=== PATIENT | female | born 1950 | race Two or more races ===

== ENCOUNTER 2025-02-22 19:02 | Emergency (ER) | payer MEDICAID ==
[~2025-02-22] VITALS: Ht 157.5 cm; Wt 55.2 kg
[2025-02-22 20:06] LABS: MEAN PLATELET VOLUME 7.3 FL (7.4-10.4); RED CELL DISTRIBUTION WIDTH 13.3 % (11.5-14.5)
--- NOTE | 2025-02-22 20:11 | Physician Documentation ---
History of Present Illness ~ Chief Complaint: Cold, cough & congestion Stated Complaint: COUGH Time Seen by MD: 19:34 Mode of Arrival: POV, Ambulatory HPI Patient is a 74-year-old female that presents to the emergency department for evaluation of cough cold and congestion x1 week. Patient reports that her chest congestion has progressed over the last couple of days. Patient reports fevers. Patient denies chest pain nausea vomiting or diarrhea at this time. Patient's son reports that his mother had pneumonia the last time she was ill. Patient denies any cardiac history pulmonary history or any other significant past medical history at this time. Medication Reconciliation Allergies: Coded Allergies: No Known Allergies (Unverified , 02/22/25) Review of Systems ROS As stated above in the HPI, otherwise all systems are reviewed and negative. Physical Exam Vital Signs: Temperature: 96.3, Source: Temporal, Heart Rate: 88, Respiratory Rate: 16, BP: 147/62, Pulse Oximetry: 99, Weight: 55.250 Physical Exam VITALS: Reviewed and as above. GENERAL: Alert, no apparent distress. HEENT: Normocephalic, atraumatic, PERRL, EOMI, dry mucosa, no erythema, nasal congestion and rhinorrhea. RESPIRATORY: Lungs clear, normal breath sounds, no respiratory distress. CHEST: No accessory muscle use, no retractions, congestion with cough. CV: Regular rate, rhythm, no edema, no murmur, No: JVD GI: Soft, non-tender, bowels sounds present, no rebound, guarding, or rigidity BACK: No CVA tenderness, or swelling MUSCULOSKELETAL No deformities, no edema SKIN: Warm and dry, no rash NEURO: Oriented x4, No motor or sensory deficit PSYCH: Normal mood and affect, no agitation Progress Results/Orders Results/Orders Orders - ALYSSA HANEY Chest,Two Views (02/22/25 20:08) Completed Orders - ALYSSA HANEY Cbc/Diff (02/22/25 19:53) CMP (02/22/25 19:53) Chest,Two Views (02/22/25 20:08) Vital Signs 02/22/25 02/22/25 19:09 19:32 Temp 96.3 Pulse 88 Resp 15 16 B/P (MAP) 147/62 Pulse Ox 99 Laboratory Tests Test 02/22/25 20:01 White Blood Count 11.1 H Red Blood Count 3.60 L Hemoglobin 11.5 L Hematocrit 33.5 L Mean Corpuscular Volume 93.2 Mean Corpuscular Hemoglobin 31.9 H Mean Corpuscular Hemoglobin Concent 34.3 Red Cell Distribution Width 13.3 Platelet Count 364 Mean Platelet Volume 7.3 L Neutrophils (%) (Auto) 60.4 Lymphocytes (%) (Auto) 30.0 Monocytes (%) (Auto) 8.3 Eosinophils (%) (Auto) 1.0 Basophils (%) (Auto) 0.3 Neutrophils # (Auto) 6.7 Lymphocytes # (Auto) 3.3 Monocytes # (Auto) 0.9 Eosinophils # (Auto) 0.1 Basophils # (Auto) 0.0 CBC Comment Sodium Level 138 Potassium Level 4.7 Chloride Level 104 Carbon Dioxide Level 25.4 Anion Gap 9 Blood Urea Nitrogen 17 Creatinine 0.81 Estimated GFR/1.73 m2 69 BUN/Creatinine Ratio 21.0 H Glucose Level 354 H Calcium Level 9.2 Total Bilirubin 0.2 Aspartate Amino Transf (AST/SGOT) 19 Alanine Aminotransferase (ALT/SGPT) 30 Alkaline Phosphatase 150 H Total Protein 7.1 Albumin 3.2 L Globulin 3.9 Albumin/Globulin Ratio 0.8 L Chemistry Comments Medical Decision Making Findings This patient presents with symptoms suspicious for likely viral upper respiratory infection. Based on history and physical doubt sinusitis. Patient declined COVID and flu test. Based on exam and diagnostics do not suspect underlying cardiopulmonary process. I considered, but think unlikely, dangerous causes of this patients symptoms to include ACS, CHF or COPD exacerbations, pneumonia, pneumothorax. Patient is nontoxic appearing and not in need of emergent medical intervention. Patient told to self isolate at home until symptoms subside for 72 hours or fever free for 24 hours or greater without antipyretics. Patient will follow up with her primary care provider regarding her elevated glucoses as she is diabetic at baseline. Patient will return to the emergency department with worsening or recurrent symptoms or any additional concerning symptoms that we discussed here today i.e. shortness of breath increased chest tightness lightheadedness or any other concerning symptoms. Differential Dx:Considerations: Include: Allergic rhinitis, Influenza, Otitis media, Peritonsillar abscess, Pharyngitis-Diphtheria, Pharyngitis-Streptoccal, Pharyngitis-Viral, Pneumonia, Pnuemonitis, Sinusitis, URI, Other Departure Disposition: HOME / SELF CARE / HOMELESS Impression: Primary Impression: Acute respiratory infection Additional Impressions: Cough Congestion of paranasal sinus Fever Discharge Instructions: Upper Respiratory Infection, Adult Additional Instructions: This patient presents with symptoms suspicious for likely viral upper respiratory infection. Based on history and physical doubt sinusitis. Patient declined COVID and flu test. Based on exam and diagnostics do not suspect underlying cardiopulmonary process. I considered, but think unlikely, dangerous causes of this patients symptoms to include ACS, CHF or COPD exacerbations, pneumonia, pneumothorax. Patient is nontoxic appearing and not in need of emergent medical intervention. Patient told to self isolate at home until symptoms subside for 72 hours or fever free for 24 hours or greater without antipyretics. Patient will follow up with her primary care provider regarding her elevated glucoses as she is diabetic at baseline. Patient will return to the emergency department with worsening or recurrent symptoms or any additional concerning symptoms that we discussed here today i.e. shortness of breath increased chest tightness lightheadedness or any other concerning symptoms. Tylenol for discomfort. Please increase your fluids. Rest as tolerated. Follow up with your primary care provider in the next 2-3 days or if your symptoms persist past 7-10 days. Return to the emergency department with any worsening or recurrent symptoms or any additional concerning symptoms that we discussed here today. Referrals: NO PRIMARY CARE PROVIDER (PCP) Education Educated: Patient Educated regarding: diagnosis, treatment, need for follow up Signature Scribe Signature: AScribed for Alyssa Haney by CHANDLER Stevens . 02/22/25 21:27 Attestation: Scribed for Alyssa Haneyp by CHANDLER Stevens . 02/22/25 21:27 ALYSSA HANEY Feb 22, 2025 20:11
--- NOTE | 2025-02-22 20:20 | RADIOLOGY REPORT ---
EXAM: DI CHEST,TWO VIEWS TECHNIQUE: Two radiographic views of the chest CLINICAL HISTORY: congestions, fevers COMPARISON: None Findings/Impression: Frontal and lateral chest radiographs demonstrate no acute osseous or superficial soft tissue abnorma lities. The trachea is midline. The cardiac silhouette and mediastinum are within normal limits. No pneumothorax, pleural effusions, or consolidations.
[2025-02-22 20:22] LABS: CREATININE 0.81 MG/DL (0.40-0.90); TOTAL CARBON DIOXIDE 25.4 MMOL/L (24-32); eCRCL 49 ML/MIN; eGFR 69 ML/MIN
[2025-02-22 21:39] VITALS: BP 122/82; PULSE 74; RESP 16; TEMP 98.1; O2SAT 99
== END 2025-02-22 21:41 | disposition home or self-care (01) ==
LOC: ER 19:04
DX: J22 Unspecified acute lower respiratory infection (principal); R05.9 Cough, unspecified; R09.81 Nasal congestion; R50.9 Fever, unspecified
CPT/HCPCS: 36415; 71046; 80053; 85025; 99284